=== PATIENT | male | born 1945 | race Caucasian/White ===

== ENCOUNTER 2020-09-21 09:20 | Day surgery (SDC) | payer OTHER, SELFPAY ==
[2020-09-12 13:46] VITALS: BMI 30.6
--- NOTE | 2020-09-21 05:34 | HP_ITS ---
Intake Vital Signs 09/12/20 BP 169/89 H 09/12/20 Blood Pressure Location Rt brachial 09/12/20 Position Sitting 09/12/20 Pulse 55 L 09/12/20 Height 5 ft 9 in 09/12/20 Weight: 207 lb 4 oz 09/12/20 BP 189/90 H 09/12/20 Blood Pressure Location Rt brachial 09/12/20 Position Sitting 09/12/20 Respiration 20 H 09/12/20 Pulse 68 09/12/20 Pulse Source NIBP 09/12/20 Temp 98.0 F 09/12/20 Temp Source Temporal 09/12/20 Pulse Oximetry (%) 97 09/12/20 Oxygen Delivery Method room air Intake Visit Reasons: C-Scope HX of colon polyps Chief Complaint: colonoscopy, hx polyps Cath Laboratory Technician Required: No Is patient in pain?: No Allergies cimetidine [From [facility]] Adverse Reaction (Mild, Verified 09/12/20 13:47) mental status change Medications amlodipine 10 mg tablet 10 mg PO DAILY 09/12/20 [History Confirmed 09/12/20] atorvastatin 20 mg tablet 20 mg PO QHS 09/12/20 [History Confirmed 09/12/20] carvedilol 6.25 mg tablet 6.25 mg PO BID 09/12/20 [History Confirmed 09/12/20] empagliflozin 10 mg tablet 10 mg PO DAILY 09/12/20 [History Confirmed 09/12/20] insulin glargine 100 unit/mL subcutaneous solution 15 unit SC BID 09/12/20 [History Confirmed 09/12/20] isosorbide mononitrate 120 mg tablet,extended release 24 hr 120 mg PO DAILY 09/12/20 [History Confirmed 09/12/20] levothyroxine 25 mcg tablet 25 mcg PO DAILY 09/12/20 [History Confirmed 09/12/20] lisinopril 20 mg tablet 20 mg PO DAILY 09/12/20 [History Confirmed 09/12/20] metformin 1,000 mg tablet 1,000 mg PO BID 09/12/20 [History Confirmed 09/12/20] omeprazole 20 mg capsule,delayed release 20 mg PO DAILY 09/12/20 [History Confirmed 09/12/20] [facility] Medical History (Updated 09/12/20 @ 13:45 by Dinorah Vargas) Diabetes (Acute) GERD (gastroesophageal reflux disease) (Acute) Gastric ulcer (Acute) History of colonic polyps (Acute) History of skin cancer in adulthood (Acute) Hypothyroidism (Acute) Osteoarthritis (Acute) Sleep apnea (Acute) HTN (hypertension) (Chronic) Surgical History (Updated 09/12/20 @ 13:45 by Dinorah Vargas) H/O colonoscopy (Acute ~06/2014) History of hand surgery (Acute) Hx of heart artery stent (Acute ~2004) Hx of local excision of skin lesion (Acute) Family History (Updated 09/12/20 @ 13:46 by Dinorah Vargas) Mother Diabetes CVA (cerebral vascular accident) Cancer renal Father Heart disease Cancer renal Diabetes Brother Diabetes HPI HPI HPI: VERNON CASILLAS, is a 75 M who presents to the office today for HPI HPI Surgical H&P: Yes HPI: VERNON CASILLAS, is a 75 M who presents to the office today for colonoscopy. The patient has last colonoscopy in 2013 and he did have polyps. He was recommended to repeat in 5 years and he is 2 years overdue. He is not having any abdominal pain or blood in his stool. He denies family history of colon cancer. ROS General General: No weight change, appetite, fatigue, colon cancer, breast cancer or weakness HEENT HEENT: Yes eye surgery; no difficulty swallowing, eye injury, swollen glands or hoarseness Endo Endocrine: Yes thyroid disease and diabetes mellitus; no thyroid cancer, Hair loss, heat intolerance or cold intolerance Musc Musculoskeletal: Yes back problems and arthritis; no rheumatoid arthritis, gout or joint pain Cardio Cardiovascular: Yes high blood pressure and heart stent; no murmur, pacemaker, heart disease, atrial fibrillation, heart attack, palpitations, shortness of breat with exertion or chest pain Psych Psychiatric: No depression, anxiety or hearing voices Resp Respiratory: Yes shortness of breath, Yes sleep apnea, No cough, No COPD, No asthma, No emphysema, No wheezing Gastro Gastrointestinal: No abdominal pain, No nausea or vomiting, No diarrhea, No constipation, No blood in stool, Yes acid reflux, No hemorrhoids, Yes ulcers, No gallbladder problem, No black,tarry stools Samy Hematologic: No blood thinners, No blood disorders, No bleeding, No anemia, No blood clots Neuro Neurologic: No weakness Exam Const General: cooperative Orientation: alert, oriented x3 Resp Effort & Inspection: normal respiratory effort Auscultation: clear to auscultation bilaterally Cardio Rate: regular rate Rhythm: regular rhythm Heart Sounds: no murmurs GI Inspection: non-distended Palpation: soft, nontender Assessment & Plan Problems 1. History of adenomatous polyp of colon Z86.010 Plan The patient has history of adenomatous polyps of the colon. The patient is overdue for surveillance colonoscopy and I will perform this for him. Patient was instructed to continue his aspirin for the procedure. I explained endoscopy in detail to the patient. I explained the risks including but not limited to stroke or heart attack with anesthesia, perforation of the GI tract, bleeding, infection. I explained that any of these could necessitate further emergency surgery. The patient understands and all questions were answered sufficiently. The patient wishes to proceed with procedure. Iglesia Peters MD Pager: [facility] [address] [place] [address], [address] [place] [address] Office: Orders Orders: Colonoscopy Today Z86.010 Coding Level of Care Code Off vis,new,level 3 Diagnoses History of adenomatous polyp of colon Z86.010 I have seen and reexamined the patient. No changes.
[2020-09-21 09:47] VITALS: BP 170/71; PULSE 44; RESP 16; TEMP 36.3; O2SAT 99; BMI 30.2
[2020-09-21] MEDS: Lactated Ringers 1,000 ML 100 ML IV (09:54)
[2020-09-21 10:00] LABS: Bedside Glucose 126 mg/dL (70-110)
[2020-09-21 11:06] VITALS: BP 130/64; BP 170/71; PULSE 69; RESP 16; TEMP 37.2; O2SAT 98
--- NOTE | 2020-09-21 11:06 | OP.CCLET_ITS ---
09/21/2020 [facility] Re : Colonoscopy procedure for [facility] This procedure was performed on Monday, September 21, 2020. My impressions and recommendations are as follows: Impressions : - The entire examined colon is normal on direct and retroflexion views. - No specimens collected. Recommendations : - Discharge patient to home. - Resume previous diet. - Continue present medications. - Repeat colonoscopy is not recommended due to current age (66 years or older) for screening purposes. My findings are described in the full procedure note, which is enclosed. If I can be of further assistance, please feel free to contact me at Doctor phone number(s): , Work: . Sincerely, Iglesia Peters MD 09/21/2020 11:05:33 AM This report has been signed electronically.
--- NOTE | 2020-09-21 11:06 | OP.COLON_ITS ---
Patient Name: Bon Head Procedure Date: 09/21/2020 10:35 AM Date of : 1945 Age: 75 Procedure: Colonoscopy Indications: Surveillance: Personal history of adenomatous polyps on last colonoscopy > 5 years ago Providers: Iglesia Peters MD Referring MD: [facility] Medicines: Monitored Anesthesia Care Patient Profile: This is a 75 year old male. Refer to note in patient chart for documentation of history and physical. Last Colonoscopy: 5 years ago. Complications: No immediate complications. Procedure: Pre-Anesthesia Assessment: - Prior to the procedure, a History and Physical was performed, and patient medications and allergies were reviewed. The patient's tolerance of previous anesthesia was also reviewed. The risks and benefits of the procedure and the sedation options and risks were discussed with the patient. All questions were answered, and informed consent was obtained. Prior Anticoagulants: The patient has taken no previous anticoagulant or antiplatelet agents. After reviewing the risks and benefits, the patient was deemed in satisfactory condition to undergo the procedure. After I obtained informed consent, the scope was passed under direct vision. Throughout the procedure, the patient's blood pressure, pulse, and oxygen saturations were monitored continuously. The Colonoscope was introduced through the anus and advanced to the cecum, identified by appendiceal orifice and ileocecal valve. The colonoscopy was performed without difficulty. The patient tolerated the procedure well. The quality of the bowel preparation was good. Scope In: 10:45:41 AM Scope Withdrawal Time 0 hours 6 minutes 18 seconds Scope Out: 11:00:59 AM Total Procedure Duration Time 0 hours 15 minutes 18 seconds Findings: The entire examined colon appeared normal on direct and retroflexion views. Impression: - The entire examined colon is normal on direct and retroflexion views. - No specimens collected. Recommendation: - Discharge patient to home. - Resume previous diet. - Continue present medications. - Repeat colonoscopy is not recommended due to current age (66 years or older) for screening purposes. Procedure Code(s): --- Professional --- G0105, Colorectal cancer screening; colonoscopy on individual at high risk Diagnosis Code(s): --- Professional --- Z86.010, Personal history of colonic polyps CPT copyright 2017 [employer]. All rights reserved. The codes documented in this report are preliminary and upon computer aided design technician review may be revised to meet current compliance requirements. Iglesia Peters MD 09/21/2020 11:05:33 AM This report has been signed electronically. Number of Addenda: 0 Note Initiated On: 09/21/2020 10:35 AM
[2020-09-21 11:10] VITALS: BP 140/64; BP 170/71; PULSE 65; PULSE 67; RESP 16; O2SAT 97; O2SAT 98
[2020-09-21 11:15] VITALS: BP 144/81; BP 170/71; PULSE 69; RESP 16; O2SAT 98
[2020-09-21 11:20] VITALS: BP 140/69; BP 170/71; PULSE 57; RESP 16; TEMP 36.1; O2SAT 99
[2020-09-21 11:42] VITALS: BP 170/71
== END 2020-09-21 11:42 | disposition home or self-care (01) ==
LOC: EN 09:21 → AC 09:22
PROVIDERS: Visit Provider Surgery
PROC: 0DJD8ZZ Inspection of Lower Intestinal Tract, Via Natural or Artificial Opening Endoscopic (ICD-10-PCS; CPT 45378; principal; 2020-09-21 10:40)
DX: Z86.010 Personal history of colon polyps (principal); Z20.828 Contact with and (suspected) exposure to other viral communicable diseases; I10 Essential (primary) hypertension; E11.9 Type 2 diabetes mellitus without complications; K21.9 Gastro-esophageal reflux disease without esophagitis; E03.9 Hypothyroidism, unspecified; M19.90 Unspecified osteoarthritis, unspecified site; G47.30 Sleep apnea, unspecified; E78.00 Pure hypercholesterolemia, unspecified; Z87.19 Personal history of other diseases of the digestive system; Z85.828 Personal history of other malignant neoplasm of skin; Z95.5 Presence of coronary angioplasty implant and graft; Z79.4 Long term (current) use of insulin; Z79.82 Long term (current) use of aspirin; Z79.899 Other long term (current) drug therapy; Z87.891 Personal history of nicotine dependence
CPT/HCPCS: 45378; 82962; 87426; C9803; J7120; J2405